=== PATIENT | female | born 1975 | race Caucasian/White ===

== ENCOUNTER 2018-12-06 13:35 | Emergency (ER) | payer MEDICAID ==
[2018-12-06 14:37] LABS: BASO % 0.3 % (0-6); EOS % 4.3 % (0-6); GRAN % 65.9 % (47-80); HEMATOCRIT 43.7 % (35.0-47.0); LYMPH % 23.5 % (16-45); MEAN CELL VOLUME 88.8 fl (81-97); MEAN CORPUSCULAR HEMOGLOBIN 28.5 pg (27-33); MEAN PLATELET VOLUME 9.2 fl (7.4-10.4); PLATELET COUNT 290 K/uL (130-400); RED BLOOD COUNT 4.92 M/uL (3.80-5.40); RED CELL DISTRIBUTION WIDTH 13.5 % (11.5-14.5); WHITE BLOOD COUNT W/O DIFF 9.6 K/uL (4.2-12.2)
[2018-12-06 14:40] LABS: BLOOD UREA NITROGEN 13 mg/dL (6-20); CREATININE 0.6 mg/dL (0.5-0.9); EST GLOMERULAR FILTRATION RATE > 60 mL/min
[2018-12-06 14:43] LABS: GLUCOSE,RANDOM 137 mg/dL (74-109)
[2018-12-06 14:46] LABS: CREATINE PHOSPHOKINASE 88 U/L (26-192)
[2018-12-06 14:47] LABS: CKMB 1.8 ng/mL (<3.77)
--- NOTE | 2018-12-06 15:08 | Emergency Department Record ---
History of Present Illness - General Chief Complaint: Arrythmia/Palpitations Stated Complaint: FEELS LIKE HEART IS SKIPPING A BEAT Time Seen by Provider: 12/06/18 13:48 Source: Patient Mode of Arrival: Ambulatory Limitations: No limitations - History of Present Illness Initial Comments: pt has been feeling palpitations since yesterday. she has had these before but they are worse. she states she gets tingly and lightheaded with them . she had a holter monitor 10yrs ago Complaint: Palpitations Onset/Timin -: Days(s) Context: Occurred during rest Arrythmia History: Atrial fibrillation Associated Symptoms: Denies other symptoms - Related Data Home Medications Medication Instructions Recorded Confirmed Last Taken No Home Med [NO HOME MEDS] 12/06/18 12/06/18 Unknown Allergies Allergy/AdvReac Type Severity Reaction Status Date / Time Penicillins Allergy Intermediate HIVES Verified 12/06/18 13:54 Travel Screening - Travel/Exposure Within Last 30 Days Have you traveled within the last 30 days?: No - Travel/Exposure Within Last Year Have you traveled outside the [place] in the last year?: No - Additonal Travel Details Have you been exposed to anyone with a communicable illness?: No - Travel Symptoms Symptom Screening: None Review of Systems Reviewed: No additional complaints except as noted below Constitutional: Reports: As per HPI. Denies: Chills, Fever, Malaise, Night sweats, Weakness, Weight change Eyes: Reports: As per HPI. Denies: Eye discharge, Eye pain, Photophobia, Vision change ENT: Reports: As per HPI. Denies: Congestion, Dental pain, Ear pain, Epistaxis , Hearing loss, Throat pain Respiratory: Reports: As per HPI. Denies: Cough, Dyspnea, Hemoptysis, Stridor, Wheezes Cardiovascular: Reports: As per HPI, Palpitations. Denies: Arrhythmia, Chest pain, Dyspnea on exertion, Edema, Murmurs, Orthopnea, Paroxysmal nocturnal dyspnea, Rheumatic Fever, Syncope Endocrine: Reports: As per HPI. Denies: Fatigue, Heat or cold intolerance, Polydipsia, Polyuria Gastrointestinal: Reports: As per HPI. Denies: Abdominal pain, Constipation, Diarrhea, Hematemesis, Hematochezia, Melena, Nausea, Vomiting Genitourinary: Reports: As per HPI. Denies: Abnormal menses, Discharge, Dyspareunia, Dysuria, Frequency, Hematuria, Incontinence, Retention, Urgency Musculoskeletal: Reports: As per HPI. Denies: Arthralgia, Back pain, Gout, Joint swelling, Myalgia, Neck pain Skin: Reports: As per HPI. Denies: Bruising, Change in color, Change in hair/ nails, Lesions, Pruritus, Rash Neurological: Reports: As per HPI. Denies: Abnormal gait, Confusion, Headache, Numbness, Paresthesias, Seizure, Tingling, Tremors, Vertigo, Weakness Psychiatric: Reports: As per HPI. Denies: Anxiety, Auditory hallucinations, Depression, Homicidal thoughts, Suicidal thoughts, Visual hallucinations Hematological/Lymphatic: Reports: As per HPI. Denies: Anemia, Blood Clots, Easy bleeding, Easy bruising, Swollen glands Past Medical History - SOCIAL HISTORY Smoking Status: Never smoker Alcohol Use: Occasional Drug Use: None - RESPIRATORY Hx Respiratory Disorders: No Hx Asthma: Yes (seasonal) - CARDIOVASCULAR Hx Cardio Disorders: Yes Hx Irregular Heartbeat: Yes Hx Palpitations: Yes (03/21/15 to [facility] ED) Comment:: Right knee "goes out"-- fell at home couple times - NEURO Hx Neuro Disorders: Yes Hx Weakness: Yes (felt weak with palpitations 02/2015) Comment:: no further problems since February 2015 - GI Hx GI Disorders: No - Hx Genitourinary Disorders: Yes Comment:: has mirena IUD for past 5 yrs-no menses "for years". - ENDOCRINE Hx Endocrine Disorders: No - MUSCULOSKELETAL Hx Musculoskeletal Disorders: Yes Comment:: torn medial meniscus right knee-very painful - PSYCH Hx Psych Problems: No - HEMATOLOGY/ONCOLOGY Hx Hematology/Oncology Disorders: No Family Medical History Any Significant Family History?: Yes Hx Diabetes: Mother, Grandparents Hx HTN: Father, Mother Physical Exam - General General Appearance: Alert, Oriented x3, Cooperative, No acute distress - Head Head exam: Normal inspection - Eye Eye exam: Normal appearance, PERRL, EOMI Pupils: Normal accommodation - ENT ENT exam: Normal exam, Mucous membranes moist, Normal external ear exam, Normal orophraynx Ear exam: Normal external inspection. negative: External canal tenderness Nasal Exam: Normal inspection. negative: Discharge, Sinus tenderness Mouth exam: Normal external inspection, Tongue normal Teeth exam: Normal inspection. negative: Dental caries Throat exam: Normal inspection. negative: Tonsillar erythema, Tonsillar exudate - Neck Neck exam: Normal inspection, Full ROM. negative: Tenderness - Respiratory Respiratory exam: Normal lung sounds bilaterally. negative: Respiratory distress - Cardiovascular Cardiovascular Exam: Normal rhythm, Normal heart sounds, Tachycardia - GI/Abdominal GI/Abdominal exam: Soft, Normal bowel sounds. negative: Tenderness - Rectal Rectal exam: Deferred - exam: Deferred - Extremities Extremities exam: Normal inspection, Full ROM, Normal capillary refill. negative: Tenderness - Back Back exam: Reports: Normal inspection, Full ROM. Denies: Muscle spasm, Rash noted, Tenderness - Neurological Neurological exam: Alert, CN II-XII intact, Normal gait, Oriented X3 - Psychiatric Psychiatric exam: Normal affect, Normal mood - Skin Skin exam: Dry, Intact, Normal color, Warm Course Vital Signs 12/06/18 12/06/18 12/06/18 13:46 13:54 15:04 Temperature 98.0 F Pulse Rate [ 110 H 93 H Pulse Ox Probe] Respiratory 18 Rate Blood Pressure 171/113 161/88 165/96 [Left Arm] Pulse Ox 98 96 - Reevaluation(s) Reevaluation #1: 12/06/18 15:28 pt had occasional pvcs. she had a normal tsh 5 days ago. she will be fitted w a holter monitor tomorrow morning as the computer is locked out to merna Reevaluation #2: 12/06/18 15:30 ekg sinus tach w pvc Medical Decision Making - Lab Data Result diagrams: 12/06/18 14:26 12/06/18 14:26 Lab Results 12/06/18 12/06/18 12/06/18 Range/Units 14:26 14:26 14:26 WBC 9.6 (4.2-12.2) K/uL RBC 4.92 (3.80-5.40) M/uL Hgb 14.0 (11.6-16.0) gm/dl Hct 43.7 (35.0-47.0) % MCV 88.8 (81-97) fl MCH 28.5 (27-33) pg MCHC 32.0 (32-36) g/dl RDW 13.5 (11.5-14.5) % Plt Count 290 (130-400) K/uL MPV 9.2 (7.4-10.4) fl Gran % 65.9 (47-80) % Lymphocytes % 23.5 (16-45) % Monocytes % 6.0 (0-9) % Eosinophils % 4.3 (0-6) % Basophils % 0.3 (0-6) % D-Dimer 0.56 (0-0.59) mg/L FEU Sodium 141 (136-145) mmol/L Potassium 3.8 (3.4-4.5) mmol/L Chloride 101 (98-107) mmol/L Carbon Dioxide 27.0 (22-29) mmol/L Anion Gap 13.0 (7-16) BUN 13 (6-20) mg/dL Creatinine 0.6 (0.5-0.9) mg/dL Estimated GFR > 60 mL/min Random Glucose 137 H (74-109) mg/dL Calcium 8.7 (8.6-10.0) mg/dL Creatine Kinase 88 (26-192) U/L CK-MB (CK-2) 1.8 (<3.77) ng/mL Troponin T < 0.010 (0-0.010) ng/mL Disposition Disposition: Discharge Clinical Impression: Palpitations Disposition: Home, Self-Care Condition: (1) Good Instructions: Heart Palpitations (ED) Additional Instructions: return tomorrow morning to registration and ask for merna for holter monitor. return sooner if worse. no caffeine, no cold medication Forms: Patient Portal Access Quality - Quality Measures Quality Measures: N/A - Blood Pressure Screening Does Patient Have Any of the Following: No Blood Pressure Classification: Hypertensive Reading Systolic Measurement: 165 Diastolic Measurement: 96 Screening for High Blood Pressure: < First Hypertensive BP, F/U Documented > [ [id number]] First Hypertensive Follow-up Interventions: Follow-up with rescreen GT 1 day and LT 4 weeks.
== END 2018-12-06 15:50 | disposition home or self-care (01) ==
LOC: ER 13:35
DX: R00.0 Tachycardia, unspecified (principal); I49.3 Ventricular premature depolarization; I34.1 Nonrheumatic mitral (valve) prolapse
CPT/HCPCS: 80048; 82550; 82553; 84484; 85025; 85379; 93005; 93010; 99284